=== PATIENT | female | born 1985 | race Caucasian/White ===

== ENCOUNTER 2020-05-14 15:30 | Emergency (ER) | payer OTHER ==
[2020-05-14 15:30] VITALS: BP 0/0
[~2020-05-14 15:30] MED LIST: ACETAMINOPHEN-1 EAC1 PO; AMOXICILLIN 50500 M1 PO; AMOXICILLIN 50500 MG PO; BACTRIM DS TAB1 EACH PO; BACTROBAN CREAM30 GM TOP; BACTROBAN NASAL1 GM NASAL; DOXYCYCLINE 10100 MG PO; HYDROCORTISONE3011 TP; IBUPROFEN 600600 M1 PO; IBUPROFEN 800800 M1 PO; KEFLEX500 MG PO; LIDOCAINE VISC100 M1 SWISH&SPIT; NAPROSYN500 MG PO; PROMETHAZINE/C118 ML PO; ULTRAM 50MG TAB50 MG PO; VENTOLIN HFA 1818 GM INH; VICODIN 5-3001 EACH PO; VOLTAREN GEL 1100 G1 TOP; ZOFRAN4 MG PO; ZPAK PO
== END 2020-05-14 16:01 | disposition left against medical advice (07) ==
LOC: M.ERS 15:30
DX: Z53.21 Procedure and treatment not carried out due to patient leaving prior to being seen by health care provider (principal)

== ENCOUNTER 2021-03-31 16:18 | Emergency (ER) | payer OTHER ==
[~2021-03-31] VITALS: Ht 154.9 cm; Wt 55.8 kg
[2021-03-31] MEDS ORDERED: ONDANSETRON ODT4 MG PO (16:40)
[2021-03-31 17:56] LABS: ABSOLUTE BASOPHILS 0.1 thou/uL (0.0-0.2); ABSOLUTE MONOCYTES 0.6 thou/uL (0.0-1.2); BASOPHILS 0.8 %; EOSINOPHILS 0.3 %; HEMATOCRIT 36.8 % (37.0-47.0); HEMOGLOBIN 12.9 gm/dL (12.0-15.0); LYMPHOCYTES 26.3 %; MCH 32.8 pg (26.0-34.0); MCHC 34.9 g/dL (28.0-37.0); MCV 93.8 fL (80.0-100.0); MONOCYTES 8.3 %; MPV 8.3 fl. (7.2-11.1); NUCLEATED RBCS 0 /100WBC; PLATELET COUNT* 268 thou/uL (150-400); POLYS 64.3 %; RBC 3.92 mil/uL (4.20-5.00); RDW-CV 12.8 % (10.5-14.5); WBC 7.8 thou/uL (4.0-11.0)
[2021-03-31 18:10] LABS: ALBUMIN 4.1 g/dL (3.4-5.0); CREATININE 0.7 mg/dL (0.6-1.3); TOTAL BILIRUBIN 0.5 mg/dL (<0.1-1.0); TOTAL PROTEIN 7.4 g/dL (6.4-8.2)
[2021-03-31 18:12] LABS: POTASSIUM 2.7 mmol/L (3.5-5.1)
[2021-03-31 18:14] LABS: CALCIUM 8.8 mg/dL (8.5-10.1)
[2021-03-31 19:24] LABS: URINE BILIRUBIN NEGATIVE (Negative); URINE BLOOD NEGATIVE (Negative); URINE CLARITY CLEAR; URINE COLOR YELLOW; URINE GLUCOSE-RANDOM NEGATIVE (Negative); URINE KETONES NEGATIVE (Negative); URINE LEUKOCYTES-REFLEX NEGATIVE (Negative); URINE NITRITE-REFLEX NEGATIVE (Negative); URINE PROTEIN NEGATIVE (Negative); URINE SPECIFIC GRAVITY <= 1.005 (1.005-1.030); URINE UROBILINOGEN 0.2 E.U./dl (0.2-1.0)
[2021-03-31] MEDS ORDERED: POTASSIUM20 PO (19:25)
[2021-03-31] MEDS ORDERED: BENTYL 10 MG CA10 M1 PO (19:25)
[2021-03-31] MEDS ORDERED: ZOFRAN ODT4 MG PO (19:25)
[2021-03-31 19:42] VITALS: BP 107/62
--- NOTE | 2021-04-01 16:23 | EKG ---
[place] [address] ELECTROCARDIOGRAM REPORT Name: HELLEN MALONEY Room: [facility]#: [id number] Admission: 03/31/21 Attend Phys: Discharge: 03/31/21 Date of : 89 Date of Service: 03/31/21 1756 Report #: [id number] THIS REPORT FOR: //name// [facility] ED Test Date: 2021-03-31 Test Time: 17:56:38 Pat Name: HELLEN MALONEY Department: Room: Gender: Bun Icer: [facility] : 1985 Requested By: Emmie Mays Order Number: [id number] MD: Jose Irvin Measurements Intervals [place] Rate: 65 P: 50 UT: 134 QRS: 25 QRSD: 92 T: 34 QT: 440 QTc: 458 Interpretive Statements Sinus rhythm No previous ECG available for comparison Electronically Signed On 04-01-2021 16:23:39 CDT by Jose Irvin [email or web address] <ELECTRONICALLY SIGNED> By: Jose Irvin MD, [facility] 04/01/21 1623 1756 1756 Jose Irvin MD, FACC /EPI
== END 2021-03-31 19:43 | disposition home or self-care (01) ==
LOC: M.ERS 16:18
PROVIDERS: Nurse Practitioner Family
DX: R10.33 Periumbilical pain (principal); E87.6 Hypokalemia; R11.2 Nausea with vomiting, unspecified; Z91.09 Other allergy status, other than to drugs and biological substances